=== PATIENT | male | born 1970 | race Hispanic/Latino ===

== ENCOUNTER 2020-05-30 18:44 | Emergency (ER) | payer SELFPAY ==
[~2020-05-30] VITALS: Ht 165.1 cm; Wt 156.5 kg
--- NOTE | 2020-05-30 19:21 | Emergency Department Note ---
History of Present Illnes History of Present Illness Chief Complaint: Respiratory History of Present Illness This is a 50 year old male presents to the ED for penile pain and dysuria of 2 years duration. Uncircumcised, patient to be seen by urology in 3 days. States difficulty with urination ; after he voids the urine collects behind his foreskin . Onset (how long ago): month(s) Severity: moderate Onset quality: gradual Duration (how long): week(s) Timing of current episode: constant Progression: worsening Relieving factors: none Exacerbating factors: none Treatments prior to arrival: none Past Medical/Family History Physician Review I have reviewed the patient's past medical and family history. Any updates have been documented here. Past Medical History Recent Fever: No Clinical Suspicion of Infectio: No New/Unexplained Change in Ment: No Past Medical History: Hypertension Past Surgical History: None Social History Smoking Cessation: Never Smoker Alcohol Use: None Any Illegal Drug Use: No Review of Systems Review of Systems Constitutional: Reports no symptoms EENTM: Reports no symptoms Cardiovascular: Reports no symptoms Respiratory: Reports no symptoms Gastrointestinal: Reports no symptoms Genitourinary: Reports dysuria Musculoskeletal: Reports no symptoms Integumentary: Reports no symptoms Neurological: Reports no symptoms Psychological: Reports no symptoms Endocrine: Reports no symptoms Hematological/Lymphatic: Reports no symptoms Physical Exam Related Data Allergies: Coded Allergies: No Known Allergies (Unverified , 05/30/20) Triage Vital Signs Vital Signs Date Time Temp Pulse Resp B/P (MAP) Pulse Ox O2 Delivery O2 Flow Rate FiO2 05/30/20 19:15 99.0 92 22 141/96 98 Room Air Vital signs reviewed: Yes Physical Exam CONSTITUTIONAL Constitutional: Present morbidly obese HENT HENT: Present normocephalic, Present atraumatic, Present oropharynx clear/moist, Present nose normal HENT L/R: Present left ext ear normal, Present right ext ear normal EYES Eyes: Reports PERRL, Reports conjunctivae normal NECK Neck: Present ROM normal PULMONARY Pulmonary: Present effort normal, Present breath sounds normal CARDIOVASCULAR Cardiovascular: Present regular rhythm, Present heart sounds normal, Present capillary refill normal, Present normal rate GASTROINTESTINAL Abdominal: Present soft, Present nontender, Present bowel sounds normal GENITOURINARY Genitourinary: Present other (fungating lesions distal foreskin region. ) SKIN Skin: Present warm, Present dry MUSCULOSKELETAL Musculoskeletal: Present ROM normal NEUROLOGICAL Neurological: Present alert, Present oriented x 3, Present no gross motor or sensory deficits PSYCHOLOGICAL Psychological: Present mood/affect normal, Present judgement normal Results Laboratory Lab results reviewed: Yes Laboratory comments UA : many bacteria Imaging Imaging results reviewed: Yes Impressions [place] [id number] Patient Name: MARGE HARMAN JR MR #: [id number] : 1970 Age/Sex: 50/M Req #: [id number] Adm Physician: Ordered by: MOUSTAPHA WARNER DO Report #: [id number] Location: ER Room/Bed: Procedure: [id number] CT/CT ABDOMEN/PELVIS WO Exam Date: 05/30/20 Exam Time: 1999 REPORT STATUS: Signed EXAM: CT Abdomen and Pelvis WITHOUT contrast INDICATION: SUPRAPUBIC PAIN COMPARISON: None. TECHNIQUE: Abdomen and pelvis were scanned utilizing a multidetector helical scanner from the lung base to the pubic symphysis without administration of IV contrast. Absence of intravenous contrast decreases sensitivity for detection of focal lesions and vascular pathology. Coronal and sagittal reformations were obtained. Routine protocol was performed. IV CONTRAST: None ORAL CONTRAST: None COMPLICATIONS: None RADIATION DOSE: Total DLP: 1232 mGy*cm Estimated effective dose: (DLP x 0.015 x size factor) mSv CTDIvol has been reviewed. It is below the limits set by the Radiation Protocol Committee (RPC). Dose modulation, iterative reconstruction, and/or weight based adjustment of the mA/kV was utilized to reduce the radiation dose to as low as reasonably achievable. FINDINGS: LINES and TUBES: None. LOWER THORAX: Unremarkable HEPATOBILIARY: No focal hepatic lesions. No biliary ductal dilation. GALLBLADDER: No radio-opaque stones or sludge. No wall thickening. SPLEEN: No splenomegaly. PANCREAS: No focal masses or ductal dilatation. ADRENALS: No adrenal nodules KIDNEYS/URETERS: No hydronephrosis. 4.9 x 4.2 cm cyst in the upper pole of the left kidney. No stones. GI TRACT: No abnormal distention, wall thickening, or evidence of bowel obstruction. There are diverticula within the colon without evidence of diverticulitis. Appendix is normal. PELVIC ORGANS/BLADDER: Unremarkable. LYMPH NODES: There is a multilobulated mesenteric mass in the midabdomen which measures approximately 3.8 x 2.8 x 4.5 cm. Additionally, there are multiple prominent para-aortic lymph nodes which do not meet size criteria for pathologic enlargement. VESSELS: Unremarkable. PERITONEUM / RETROPERITONEUM: No free air or free fluid. BONES: There are degenerative changes in the spine. There is linear area of sclerosis in the T12 vertebral body which may represent cement from prior vertebroplasty or bone island. SOFT TISSUES: Unremarkable. IMPRESSION: Multilobulated mesenteric mass in the midabdomen which measures approximately 3.8 x 2.8 x 4.5 cm. This most likely represent conglomerate of enlarged lymph nodes. Additional prominent para-aortic lymph nodes which do not meet size criteria for pathologic enlargement are also seen. This constellation of findings may be reactive changes from recent infectious or inflammatory process. However, lymphoproliferative process can also have a similar appearance and should be considered. If additional imaging is needed, a CT of the abdomen/pelvis with intravenous contrast may provide additional information. Signed by: Prieto Olvera MD on 05/30/2020 9:02 PM Dictated By: PRIETO OLVERA MD 01 Transcribed By: MEGAN on 05/30/202101 COPY TO: MOUSTAPHA WARNER DO~ Assessment & Plan Medical Decision Making MDM Diff Dx : paraphimosis, balanitis, urinary retention , BPH Reassessment Reassessment Bedside US did not demonstrate fullness of bladder. Khan catheter insertion deferred Assessment & Plan Final Impression: (1) UTI (urinary tract infection) (2) Balanitis Depart Disposition: HOME, SELF-CARE MOUSTAPHA WARNER DO May 30, 2020 19:21
--- NOTE | 2020-05-30 21:06 | Diagnostic Imaging Report ---
EXAM: CT Abdomen and Pelvis WITHOUT contrast INDICATION: SUPRAPUBIC PAIN COMPARISON: None. TECHNIQUE: Abdomen and pelvis were scanned utilizing a multidetector helical scanner from the lung base to the pubic symphysis without administration of IV contrast. Absence of intravenous contrast decreases sensitivity for detection of focal lesions and vascular pathology. Coronal and sagittal reformations were obtained. Routine protocol was performed. IV CONTRAST: None ORAL CONTRAST: None COMPLICATIONS: None RADIATION DOSE: Total DLP: 1232 mGy*cm Estimated effective dose: (DLP x 0.015 x size factor) mSv CTDIvol has been reviewed. It is below the limits set by the Radiation Protocol Committee (RPC). Dose modulation, iterative reconstruction, and/or weight based adjustment of the mA/kV was utilized to reduce the radiation dose to as low as reasonably achievable. FINDINGS: LINES and TUBES: None. LOWER THORAX: Unremarkable HEPATOBILIARY: No focal hepatic lesions. No biliary ductal dilation. GALLBLADDER: No radio-opaque stones or sludge. No wall thickening. SPLEEN: No splenomegaly. PANCREAS: No focal masses or ductal dilatation. ADRENALS: No adrenal nodules KIDNEYS/URETERS: No hydronephrosis. 4.9 x 4.2 cm cyst in the upper pole of the left kidney. No stones. GI TRACT: No abnormal distention, wall thickening, or evidence of bowel obstruction. There are diverticula within the colon without evidence of diverticulitis. Appendix is normal. PELVIC ORGANS/BLADDER: Unremarkable. LYMPH NODES: There is a multilobulated mesenteric mass in the midabdomen which measures approximately 3.8 x 2.8 x 4.5 cm. Additionally, there are multiple prominent para-aortic lymph nodes which do not meet size criteria for pathologic enlargement. VESSELS: Unremarkable. PERITONEUM / RETROPERITONEUM: No free air or free fluid. BONES: There are degenerative changes in the spine. There is linear area of sclerosis in the T12 vertebral body which may represent cement from prior vertebroplasty or bone island. SOFT TISSUES: Unremarkable. IMPRESSION: Multilobulated mesenteric mass in the midabdomen which measures approximately 3.8 x 2.8 x 4.5 cm. This most likely represent conglomerate of enlarged lymph nodes. Additional prominent para-aortic lymph nodes which do not meet size criteria for pathologic enlargement are also seen. This constellation of findings may be reactive changes from recent infectious or inflammatory process. However, lymphoproliferative process can also have a similar appearance and should be considered. If additional imaging is needed, a CT of the abdomen/pelvis with intravenous contrast may provide additional information. Signed by: Hailee Boyce MD on 05/30/2020 9:02 PM
[2020-05-30 21:38] LABS: CLARITY,URINE CLOUDY (CLEAR); COLOR,URINE YELLOW (YELLOW)
[2020-05-30 21:39] LABS: BILIRUBIN,URINE NEGATIVE (NEGATIVE); KETONES,URINE 2+ (NEGATIVE); LEUKOCYTE ESTERASE ,URINE LARGE (NEGATIVE); NITRITE,URINE NEGATIVE (NEGATIVE); PROTEIN,URINE DIPSTICK 2+ (NEGATIVE); URINE UROBILINOGEN 0.2 mg/dL (0.2 - 1)
[2020-05-30 21:49] LABS: BACTERIA,URINE MANY /HPF; RBC,URINE 0-5 /HPF (0-5); WBC,URINE (MAN) 0-5 /HPF (0-5)
[2020-05-30 22:39] VITALS: BP 128/76
== END 2020-05-30 22:42 | disposition home or self-care (01) ==
LOC: ER 19:38
DX: N48.1 Balanitis (principal); N39.0 Urinary tract infection, site not specified; R30.0 Dysuria; E66.01 Morbid (severe) obesity due to excess calories
CPT/HCPCS: 74176; 81001; 99283

== ENCOUNTER 2022-10-14 14:01 | Emergency (ER) | payer SELFPAY ==
[~2022-10-14] VITALS: Ht 165.1 cm; Wt 170.1 kg
[~2022-10-14 14:01] MED LIST: PAXLOVID 300-11 EACH PO
[2022-10-14] MEDS ORDERED: MUCINEX DM ER1 EACH PO (15:50)
== END 2022-10-14 15:57 | disposition home or self-care (01) ==
LOC: ER 14:07
DX: R50.9 Fever, unspecified (principal); R05.9 Cough, unspecified; R09.81 Nasal congestion
CPT/HCPCS: 71045; 99283